=== PATIENT | male | born 1985 | race African-American/Black ===

== ENCOUNTER 2017-09-21 18:59 | Emergency (ER) | payer SELFPAY ==
[~2017-09-21] VITALS: Ht 172.7 cm; Wt 74.8 kg
[2017-09-21 19:01] VITALS: BP 135/93; TEMP 98.7
[2017-09-21 19:58] VITALS: PULSE 85
== END 2017-09-21 19:55 | disposition home or self-care (01) ==
LOC: COL.ER 18:59
DX: S61.411A Laceration without foreign body of right hand, initial encounter (principal); Z23 Encounter for immunization; W26.8XXA Contact with other sharp object(s), not elsewhere classified, initial encounter

== ENCOUNTER 2019-06-23 19:03 | Emergency (ER) | payer OTHER ==
[~2019-06-23] VITALS: Ht 182.9 cm; Wt 86.4 kg
[2019-06-23 19:05] VITALS: BP 146/111; TEMP 98.6
[2019-06-23 20:47] VITALS: PULSE 85
== END 2019-06-23 20:47 | disposition home or self-care (01) ==
LOC: COL.ER 19:03
DX: S60.512A Abrasion of left hand, initial encounter (principal); M25.522 Pain in left elbow; F17.210 Nicotine dependence, cigarettes, uncomplicated; Z23 Encounter for immunization; W18.02XA Striking against glass with subsequent fall, initial encounter